=== PATIENT | male | born 1995 | race Caucasian/White ===

== ENCOUNTER 2018-11-27 21:45 | Emergency (ER) | payer OTHER ==
[~2018-11-27] VITALS: Ht 175.3 cm; Wt 93.2 kg
[2018-11-27] MEDS ORDERED: ACETAMINOPHEN TAB 650MG DOSE (2X325MG) PO ONE (22:00)
[2018-11-27] MEDS ORDERED: OSELTAMIVIR PHOSPHATE 75 MG CAP (TAMIFLU) PO ONE (22:30)
[2018-11-27] MEDS ORDERED: OSEL75CA PO (22:46)
[2018-11-27 22:51] VITALS: BP 140/74
[2018-11-27 22:54] LABS: INFLUENZA A AMPLIFICATION NEGATIVE (NEGATIVE); INFLUENZA B AMPLIFICATION NEGATIVE (NEGATIVE)
== END 2018-11-27 22:53 | disposition home or self-care (01) ==
LOC: M ED 21:45
DX: J11.1 Influenza due to unidentified influenza virus with other respiratory manifestations (principal)

== ENCOUNTER 2020-04-11 20:50 | Emergency (ER) | payer OTHER ==
[~2020-04-11 20:50] MED LIST: OSEL75CA PO
[2020-04-11] MEDS ORDERED: NORCO 5/325MG TABLET (BULK FOR ED) As Ordered ONE (22:37)
== END 2020-04-11 22:12 | disposition home or self-care (01) ==
LOC: M ED 20:50
DX: S62.316A Displaced fracture of base of fifth metacarpal bone, right hand, initial encounter for closed fracture (principal); W22.8XXA Striking against or struck by other objects, initial encounter; Y92.099 Unspecified place in other non-institutional residence as the place of occurrence of the external cause; Y93.89 Activity, other specified; Y99.9 Unspecified external cause status